=== PATIENT | male | born 1945 | race Caucasian/White ===

== ENCOUNTER 2016-08-11 11:15 | Emergency (ER) | payer OTHER ==
[~2016-08-11] VITALS: Ht 172.7 cm; Wt 63.5 kg
[~2016-08-11 11:15] MED LIST: CELEBREX200 MG PO; CELEXA20 MG PO; FLOMAX(MONOGRA0.4 MG PO; FOLIC ACID PO; FOLIC ACID0.8 MG PO; LOPRESSOR100 MG PO; PERCOCET 325 MG1 TA2 PO; PREDNISONE5 MG PO; PROGLYCEM PO; SIMVASTATIN10 MG PO; SIMVASTATIN20 MG PO; VALIUM5 M1 PO; VITAMIN B121000 MCG PO; VITAMIN D PO; VITAMIN D1000 IU PO
--- NOTE | 2016-08-11 11:30 | ED CARDIAC/CP/PALPITATIONS ---
History of Present Illness General Chief Complaint: Chest Pain Stated Complaint: CP Source: patient, family, old records Exam Limitations: dementia, poor historian Allergies Coded Allergies: NO KNOWN ALLERGIES (09/17/15) Reconcile Medications Celecoxib (Celebrex) 200 MG CAPSULE 1 CAP PO 5 PM ARTHRITIS (Reported) Cholecalciferol (Vitamin D3) 1,000 IU TAB 1 TAB PO DAILY SUPPLEMENT (Reported ) Citalopram Hydrobromide (Celexa) 20 MG TABLET 2 TAB PO 5 PM DEPRESSION ( Reported) Cyanocobalamin (Vitamin B12) 1,000 MCG TAB 1 TAB PO DAILY SUPPLEMENT ( Reported) Diazoxide (Proglycem 50MG/ML (30ML)) 50 MG/ML ORAL.SUSP 75 MG PO DAILY HYPOGLYCEMIA (Reported) Folic Acid 0.8 MG TAB 1 TAB PO DAILY SUPPLEMENT (Reported) Prednisone 5 MG TAB 1 TAB PO 5 PM ARTHRITIS (Reported) Simvastatin (Zocor) 20 MG TAB 1 TAB PO DAILY CHOLESTEROL (Reported) Tamsulosin Hydrochloride (Flomax) 0.4 MG CAP.ER.24H 1 TAB PO DAILY BPH ( Reported) Triage Note: 70 Y/O MALE C/O L SIDED CHEST PAIN "FOR A FEW MINUTES" - WENT TO [facility]S OFFICE AND WAS SENT TO ED FOR FURTHER EVAL. PT STATES PAIN STARTED WITHIN THE HOUR. PT REPORTS SOB EARLIER BUT DENIES AT PRESENT. BREATHING HEAVY IN TRIAGE BUT STATES HE FEELS "NERVOUS". DENIES N/V/D. DENIES DIAPHORESIS. EKG/BLOOD DRAW IN PROGRESS. Triage Nurses Notes Reviewed? yes HPI: Patient is a 70-year-old male presents complaining of left-sided chest tightness. Chest pain began while patient was at his primary care provider's office just prior to arrival(within the past 1 hour). Patient reports when he arrived at his primary care provider's office he was symptom free. Tightness is currently a 6 out of 10, worsens with walking. Associated dyspnea and anxiety. Patient has not taken any medication for his symptoms prior to arrival. Pain is nonradiating. Patient denies lower extremity pain, lower extremity swelling, orthopnea, palpitations. Patient's also reports that the patient told his primary care provider that he was having chest pain that would wake him up in the middle of the night recently. Patient is not able to say when and for how long this has been occurring. (ALONSO MORGAN) Vital Signs & Intake/Output Vital Signs & Intake/Output Vital Signs Date Time Temp Pulse Resp B/P B/P Pulse O2 O2 Flow FiO2 Mean Ox Delivery Rate 08/11 1451 98.4 72 20 154/73 97 Nasal 2.0L Cannula 08/11 1221 98 Nasal 2.0L Cannula 08/11 1212 72 146/77 08/11 1152 97.2 80 20 184/85 100 Nasal 2.0L Cannula 08/11 1121 97.8 80 16 183/92 99 Room Air Past History Travel History Traveled to [place] past 21 day No Medical History Any Pertinent Medical History? see below for history Neurological: dementia, TIA EENT: NONE Cardiovascular: HYPOTENSION Respiratory: NONE Gastrointestinal: GERD, COLON CA BOWEL OBSTRUCTION Hepatic: NONE Renal: chronic kidney disease (stage 3) Musculoskeletal: gout, osteoporosis, rheumatoid arthritis, sciatica Psychiatric: NONE Endocrine: HYPOGLYCEMIA Blood Disorders: anemia Cancer(s): colon/rectal cancer History of MRSA: No History of VRE: No History of CDIFF: No Tetanus Vaccine: 06/16/11 Surgical History Surgical History: laminectomy, colon resection for colon cancer in 2006 CARTILAGE -KNEE 1984 CARPEL TUNNEL BOTH HANDS Psychosocial History Who do you live with Spouse Services at Home None What is your primary language Yakut Tobacco Use: Quit >30 days ago Family History Hx Contributory? No (ALONSO MORGAN) Review of Systems Review of Systems Constitutional: Denies: chills, fever. EENTM: Reports: no symptoms. Respiratory: Reports: short of breath. Denies: cough. Cardiovascular: Reports: see HPI. GI: Denies: abdominal pain, nausea, vomiting. Genitourinary: Reports: no symptoms. Musculoskeletal: Reports: no symptoms. Skin: Reports: no symptoms. Neurological/Psychological: Reports: anxiety, dementia. Hematologic/Endocrine: Reports: no symptoms. Immunologic/Allergic: Reports: no symptoms. (ALONSO MORGAN) Physical Exam Physical Exam General Appearance: alert, awake, anxious Head: atraumatic, normal appearance Eyes: Bilateral: normal appearance, PERRL, EOMI. Ears, Nose, Throat: normal pharynx, normal ENT inspection, hearing grossly normal Neck: normal inspection, supple, full range of motion Respiratory: normal breath sounds, chest non-tender, no respiratory distress, lungs clear Cardiovascular: regular rate/rhythm (NO APPRECIABLE MURMUR) Peripheral Pulses: 2+ dorsalis pedis (R), 2+ dorsalis pedis (L) Gastrointestinal: normal bowel sounds, soft, non-tender, NO PALPABLE PULSATILE MASSES Back: normal inspection, normal range of motion Extremities: normal inspection, normal capillary refill, normal range of motion, no edema, NO CALF TENDERNESS Neurologic/Psych: no motor/sensory deficits, awake, alert, normal mood/affect Skin: intact, normal color, warm/dry Lymphatic: no anterior cervical kye Core Measures ACS in differential dx? Yes ASA ordered for poss ACS? Yes-ordered Severe Sepsis Present: No Septic Shock Present: No (DOMENICA JIMENEZ,ALONSO) Progress Differential Diagnosis: AMI, aortic dissection, CHF/pulm edema, costochondritis, musculoskeletal pain, pancreatitis, pericarditis, pneumonia, pneumothorax, PSVT, pulmonary embolism, PUD/GERD, unstable angina, V-fib/V-Tach, anxiety Diagnostic Imaging: Viewed by Me: Radiology Read. Discussed w/RAD: Radiology Read. Radiology Impression: PATIENT: NAHUN EWING PRESENT AGE: 70 PATIENT ACCOUNT NO: [id number] : 43 LOCATION: [facility] ORDERING PHYSICIAN: ALONSO JIMENEZ SERVICE DATE: 08/11/16 EXAM TYPE: RAD - XRY-PORTABLE CHEST XRAY EXAMINATION: PORTABLE CHEST 1 VIEW CLINICAL INFORMATION: Chest pain. COMPARISON: 07/26/2015. TECHNIQUE: Portable frontal view of the chest was obtained. FINDINGS: Lungs are well expanded with mild chronic appearing markings bilaterally. No superimposed focal infiltrate, effusion, edema, or pneumothorax. Cardiac and mediastinal silhouettes within normal limits for size. Degenerative changes seen in the spine and shoulders. Old healed left- sided rib fractures again noted. IMPRESSION: Mild chronic appearing changes but no acute process seen. DICTATED BY: ALONSO KAY MD DATE/TIME DICTATED:1203 PAYMENT COLLECTOR:GRETA DATE/TIME TRANSCRIBED:08/11/161203 CONFIDENTIAL, DO NOT COPY WITHOUT APPROPRIATE AUTHORIZATION. <Electronically signed in Other Vendor System> SIGNED BY: ALONSO KAY MD 08/11/161206 Initial ED EKG: normal QRS complex, normal sinus rhythm, no ST T wave changes, borderline prolonged qt Prior EKG: unchanged Rhythm Strip: normal sinus rhythm (ALONSO MORGAN) Plan of Care: Orders Procedure Date/time Status TROPONIN LEVEL 08/11 1500 Complete EKG 08/11 1500 Active URINALYSIS 08/11 1224 Complete Telemetry/Electrocardiograph Repairer 08/11 1135 Active TROPONIN LEVEL 08/11 1118 Complete PARTIAL THROMBOPLASTIN TIME 08/11 1118 Complete PROTHROMBIN TIME 08/11 1118 Complete MAGNESIUM 08/11 1118 Complete COMPREHENSIVE METABOLIC PANEL 08/11 1118 Complete CBC WITHOUT DIFFERENTIAL 08/11 1118 Complete EKG 08/11 1116 Active Current Medications Sig/Theresa Start time Last Medication Dose Stop Time Status Admin Dextrose/Sodium 1,000 ML Q10H 08/11 1145 AC 08/11 Chloride 08/11 2144 1206 (D5W-1/2 Normal Saline 1000ML) Nitroglycerin 0.4 MG Q 5 MINUTES X 3 DO.. 08/11 1145 AC 08/11 (Nitrostat) 1152 Laboratory Tests 08/11/16 1448: Troponin I < 0.01 08/11/16 1250: Urine Color YEL, Urine Clarity CLEAR, Urine pH 7.5, Ur Specific [place] 1.010, Urine Protein TRACE H, Urine Ketones NEG, Urine Nitrite NEG, Urine Bilirubin NEG, Urine Urobilinogen 0.2, Ur Leukocyte Esterase NEG, Ur Microscopic SEDIMENT EXAMINED, Urine RBC 5-10 H, Urine WBC 1-3 H, Ur Epithelial Cells FEW, Urine Bacteria FEW H, Hyaline Casts 1-3 H, Urine Mucus FEW, Urine Hemoglobin TRACE- INTACT H, Urine Glucose NEG 08/11/16 1133: Anion Gap 15, Estimated GFR 43 L, BUN/Creatinine Ratio 10.6, Glucose 92, Calcium 9.8, Magnesium 1.8, Total Bilirubin 0.6, AST 20, ALT 34, Alkaline Phosphatase 81, Troponin I < 0.01, Total Protein 7.6, Albumin 4.4, Globulin 3.2, Albumin/Globulin Ratio 1.4, PT 11.4, INR 1.09, APTT 33, CBC w Diff NO MAN DIFF REQ, RBC 5.04, MCV 85.3, MCH 28.5, RDW 13.4, MPV 6.3 L, Gran % 69.8, Lymphocytes % 20.2 L, Monocytes % 8.5, Eosinophils % 1.1, Basophils % 0.4, Absolute Granulocytes 6.3, Absolute Lymphocytes 1.8, Absolute Monocytes 0.8 H, Absolute Eosinophils 0.1, Absolute Basophils 0, PUBS MCHC 33.4 08/11/2016 12:36:26 PM: Patient reports no change with sublingual nitroglycerin. Discomfort is currently 5 out of 10. Patient appears less anxious after the IV Ativan. Results of labs discussed with patient. Discussed with Dr. Pelletier. 08/11/2016 1:08:14 PM: Discussed with Dr. Cornejo: Obtain repeat EKG and troponin. If second set of cardiac enzymes and EKG are unchanged and can discharge home with close outpatient follow-up. 08/11/2016 3:49:36 PM: Patient resting comfortably. Repeat EKG and troponin unchanged. Appears stable for discharge with close outpatient follow-up. Results of labs and EKG and follow-up discussed with the patient's (ALONSO MORGAN) Departure Departure Time of Disposition: 1548 Disposition: HOME OR SELF CARE Condition: Stable Clinical Impression Primary Impression: Chest pain Qualifiers: Chest pain type: unspecified Qualified Code: R07.9 - Chest pain, unspecified Secondary Impressions: Chronic kidney disease Qualifiers: Chronic kidney disease stage: unspecified stage Qualified Code: N18.9 - Chronic kidney disease, unspecified Referrals: JEAN MARIE ECHEVARRIA APRN (PCP/Family) RANDOLPH BECKHAM,MARIAH Means Additional Instructions: Follow-up with your primary care provider and with Dr. Cornejo (sports betting manager) within 1 week for further evaluation. Call this afternoon for appointments. Return to the emergency department if chest pain returns, difficulty breathing, or worsening of symptoms. Departure Forms: Customer Survey General Discharge Information (ALONSO MORGAN) PA/ASSISTANT PRODUCT MANAGER Co-Sign Statement Statement: ED Attending supervision documentation- [X] I saw and evaluated the patient. I have also reviewed all the pertinent lab results and diagnostic results. I agree with the findings and the plan of care as documented in the PA's/ASSISTANT PRODUCT MANAGER's documentation. [] I have reviewed the ED Record and agree with the PA's/ASSISTANT PRODUCT MANAGER's documentation. [] Additions or exceptions (if any) to the PAs/ASSISTANT PRODUCT MANAGER's note and plan are summarized below: [] (ALEXANDRU BECKHAM,NICK Alvarado) Critical Care Note Critical Care Note Critical Care Time: non-applicable (DOMENICA JIMENEZ,ALONSO)
[2016-08-11 11:51] LABS: ABSOLUTE BASOPHIL COUNT 0 /CUMM (0.0-0.2); ABSOLUTE EOSINOPHIL COUNT 0.1 /CUMM (0.0-0.7); ABSOLUTE GRANULOCYTE CT 6.3 /CUMM (1.4-6.5); ABSOLUTE LYMPH COUNT 1.8 /CUMM (1.2-3.4); ABSOLUTE MONOCYTE COUNT 0.8 /CUMM (0.10-0.60); BASOPHIL % 0.4 % (0.0-2.0); EOSINOPHIL % 1.1 % (0-5); GRANULOCYTE % 69.8 % (42.2-75.2); MEAN CORPUSCULAR HGB 28.5 PG (27.0-31.0); MEAN CORPUSCULAR HGB CONC 33.4 G/DL (33.0-37.0); MEAN CORPUSCULAR VOLUME 85.3 FL (80.0-94.0); MEAN PLATELET VOLUME 6.3 FL (7.4-10.4); PLATELET COUNT 340 /CUMM (130-400); RBC DISTRIBUTION WIDTH 13.4 % (11.5-14.5); RED BLOOD CELL CT 5.04 /CUMM (4.70-6.10)
[2016-08-11 12:00] LABS: PT 11.4 SEC (9.4-12.5); PTT 33 SEC (25-37)
--- NOTE | 2016-08-11 12:07 | RADIOLOGY REPORT ---
EXAMINATION: PORTABLE CHEST 1 VIEW CLINICAL INFORMATION: Chest pain. COMPARISON: 07/26/2015. TECHNIQUE: Portable frontal view of the chest was obtained. FINDINGS: Lungs are well expanded with mild chronic appearing markings bilaterally. No superimposed focal infiltrate, effusion, edema, or pneumothorax. Cardiac and mediastinal silhouettes within normal limits for size. Degenerative changes seen in the spine and shoulders. Old healed left-sided rib fractures again noted. IMPRESSION: Mild chronic appearing changes but no acute process seen.
[2016-08-11 16:00] VITALS: BP 140/74
== END 2016-08-11 16:00 ==
LOC: ERH 11:15
PROVIDERS: Emergency Medicine
DX: R07.9 Chest pain, unspecified (principal); N18.9 Chronic kidney disease, unspecified; F03.90 Unspecified dementia, unspecified severity, without behavioral disturbance, psychotic disturbance, mood disturbance, and anxiety; D64.9 Anemia, unspecified
CPT/HCPCS: 81001; 93005; 93010; 96374; J3490; J7042